=== PATIENT | female | born 1995 | race Two or more races ===

== ENCOUNTER 2024-07-01 03:59 | Inpatient (IN) | payer MEDICAID, SELFPAY ==
[2024-07-01] VITALS (124 sets, daily range): BP systolic 103–168; BP diastolic 58–128; PULSE 91–137; RESP 16; TEMP 36.8–37; O2SAT 86–100; BMI 31.6
[2024-07-01 06:19] LABS: Basophils % (Auto) 1 % (0-2.5); Eosinophils % (Auto) 1 % (0-10); Hematocrit 32.7 % (36.0-46.0); Hemoglobin 10.7 g/dL (12.0-16.0); Immature Granulocytes % (Auto) 6 % (0-0); Immature Granulocytes Auto 0.33 Thou/mm3 (0.00-0.00); Lymphocytes # (Auto) 1.2 Thou/mm3 (1.0-4.8); Lymphocytes % (Auto) 20 % (10-50); Mean Corpuscular HGB Conc 32.7 g/dl (31.0-37.0); Mean Corpuscular Hemoglobin 27.8 pg (25.0-35.0); Mean Corpuscular Volume 85 fL (80-100); Monocytes # (Auto) 0.5 Thou/mm3 (0.0-0.8); Monocytes % (Auto) 9 % (0-12); Neutrophils # (Auto) 3.7 Thou/mm3 (1.8-7.7); Neutrophils % (Auto) 64 % (37-80); Nucleated Red Blood Cell % 0 /100 WBC (0); Platelet Count 203 Thou/mm3 (140-440); RDW Standard Deviation 43.3 fL (36.4-46.3); Red Blood Count 3.85 Miln/mm3 (4.00-5.20); White Blood Count 5.8 Thou/mm3 (3.6-11.0)
[2024-07-01 06:27] LABS: Syphilis Nonreactive (Nonreactive)
[2024-07-01] MEDS: RINGERS LACTATED 1000 ML 1,000 ML 125 ML IV ×2 (08:18→10:39)
[2024-07-01] MEDS: ACETAMINOPHEN 500 MG TABLET 1000 MG PO (08:33)
[2024-07-01 08:55] LABS: COVID-19 Antigen (In-House) Negative (Negative)
[2024-07-01] MEDS: MISOPROSTOL 50 mCg TABLET PO (09:04)
[2024-07-01 09:06] LABS: Influenza A Ag Positive; Influenza B Ag Negative
[2024-07-01] MEDS: OSELTAMIVIR 75 MG CAPSULE PO (10:00)
--- NOTE | 2024-07-01 10:40 | PD.LDHP ---
Documentation for date of: 07/01/24 OB Labor/Induct. HPI History of Present Illness Chief complaint: scheduled IOL : 2 Para: 1 Term pregnancies: 1 pregnancies: 0 Living children: 1 History of Abortions: Spontaneous and Elective: 0 History of Vaginal deliveries: 1 History of sections: No History of : No Date of last menstrual period: 09/20/23 ROSITA: 06/26/24 Gestational Age (weeks): 40 Gestational Age (days): 5 Gestational age based on last menstrual period: 40 Indication for induction: post dates History of present illness: Patient presents for scheduled IOL. She does not have regular/painful ctx, no LOF, no vaginal bleeding. Feels normal movement. She does feel myalgias and like she is coming down with the flu. No fever. + chills. A bit of a cough. Comments: History of with PPH and blood transfusion 09/16/2022. Had IOL for IUGR at 38 weeks. History of Present Dating criteria: LMP confirmed by 1st trimester US Adequate Care: Yes Ultrasounds: normal 1st trimester US and normal mid trimester US Obstetrical complications: none Medical complications: none Labs Labs: Negative: Hepatitis B, HIV, Chlamydia, Gonorrhea and Group Beta Strep Review of Systems Review of Systems Narrative Review of Systems: Review of Systems Systems Reviewed: All systems reviewed, normal except as documented Constitutional Constitutional: POSITIVE body ache(s), POSITIVE chills, Denies fever(s) and Denies headache(s) ENT Ears, Nose, Mouth, and Throat: Denies headache(s) and Denies vertigo Cardiovascular Cardiovascular: Denies chest pain, Denies palpitations, Denies dyspnea and Denies syncope Respiratory Respiratory: POSITIVE cough, Denies dyspnea Gastrointestinal Gastrointestinal: Denies nausea and Denies vomiting Neurologic Neurologic: Denies convulsions, Denies headache(s), Denies other visual disturbances, Denies syncope and Denies vertigo Past Medical History Family History OTHER FAMILY HX: mother has diabetes Surgical History SURGICAL: Negative Section OTHER SURGICAL HX: No surgeries, but 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 Past Medical History Comments PMH COMMENT: Starting BMI 26 Meds Home Medications and Allergies Home Medications ?Medication ?Instructions ?Recorded ?Confirmed ?Type vitamins-iron fumarate 65 tab 09/06/22 History mg iron-folic acid 1 mg tablet Allergies Allergy/AdvReac Type Severity Reaction Status Date / Time No Known Allergies Allergy Verified 07/01/24 04:37 OB Exam Physical Exam Vital signs: Temp Pulse BP Pulse Ox 98.4 F 123 H 108/68 98 07/01/24 09:55 07/01/24 07:01 07/01/24 07:01 07/01/24 10:39 Narrative: General: well developed, well nourished, no acute distress, conversant Cardiac: normal heart rate Lungs: breathing without distress Abdomen: soft, gravid, non-tender, no rebound or guarding. EFW by Emanuel's: [id number] Extremities: no pain with palpation of calves Detailed Labor and Delivery Exam Dilation (cm): 4 Effacement (%): 50 Cervix position: mid station: -2 Consistency: medium Presentation: Vertex Membranes: intact monitor accelerations: 15x15 monitor decelerations: None predatory animal exterminator variability: Moderate (11-25) Contraction frequency (min): irregular OB Results Labs 07/01/24 04:45 Labs: Short CBC 07/01/24 Range/Units 04:45 WBC 5.8 (3.6-11.0) Thou/mm3 Hgb 10.7 L (12.0-16.0) g/dL Hct 32.7 L (36.0-46.0) % Plt Count 203 (140-440) Thou/mm3 OB Assessment & Plan Assessment and Plan (1) Post-dates : Status: Acute Assessment and plan: Tyrone is a 29yo with SIUP at 40w5d presenting for scheduled IOL for post-dates. SCE: /-2. Positive influenza A, negative for Covid. Vitals wnl, benign exam. Reassuring assessment overall. care: Good care with [facility] PMhx/PNC significant for: History of PPH with blood transfusion after 1st delivery in 2022 Starting BMI 26 with initial HgbA1c 5.1 and normal 2hr glucose test Plan: -Admit to L&D -Establish IV, routine labs -CEFM -Initiate tamiflu 75mg PO BID x 5 days. Masking enforced in room. -Regular diet [id number], then clear liquid diet in labor -Front Desk Officer/consent re: iol and -GBS status: negative -Will initiate IOL with: cytotec 50mcg PO Q4hr -Anticipate -Safe to proceed Anne Agarwal MD (2) History of hemorrhage: Status: Acute (3) Influenza A: Status: Acute (1) Post-dates Qualifiers: Post-term type: 40-42 weeks gestation Qualified Code(s): O48.0 - Post-term
[2024-07-01] MEDS: fentaNYL CIT INJ 50 mCg/ML AMP 2ML 100 MCG IV (12:59)
[2024-07-01] MEDS: OXYTOCIN in NS 20 units 20 UNIT/1,000 ML BAG 125 UNIT IV (14:17)
[2024-07-01] MEDS: METHYLERGONOVINE INJ 0.2 MG/ML VIAL IM (14:18)
[2024-07-01] MEDS: LIDOCAINE HCL 1% 20 ML VIAL INFL (14:21)
[2024-07-01] MEDS: IBUPROFEN TAB 400 MG TABLET 800 MG PO (15:04)
--- NOTE | 2024-07-01 15:35 | PD.LDDELS ---
Data ([facility]) Data Hx Section: No : 2 Para: 1 Term: 1 : 0 Livin : 0 Delivery Data ([facility]) Labor Data ROM Date: 07/01/24 ROM Time: 13:00 Rupture Type: SROM Amniotic Fluid: Clear Delivery Data Labor Onset Stage 1 Date: 07/01/24 Labor Onset Stage 1 Time: 09:04 Labor Onset Stage 2 Date: 07/01/24 Labor Onset Stage 2 Time: 14:00 Delivery Date: 07/01/24 Delivery Time: 14:06 Placenta Delivery Date: 07/01/24 Placenta Delivery Time: 14:13 Delivered by: Anne Aagrwal Delivery nurse: Elizabeth Lucas Other staff at delivery: Nurse Other staff at delivery: Martha Dorantes Delivery Method Delivery: Vaginal Delivery Type: Spontaneous Anesthesia Type Primary Anesthesia: None Placenta Placenta Delivery: Spontaneous Perineal repair Sutures used for repair: 3.0 Vicryl EBL Estimated blood loss (ml): 300 Additional Procedures Tyrone is a 29yo [id number] s/p uncomplicated at 40w5d after undergoing IOL for post-dates, delivering at 1406 on 07/01/2024. On presentation, SCE was 4/70/-2. She progressed with a single dose of cytotec to C/C/0 at which point she began pushing. She was not able to receive an epidural in time. With good maternal pushing efforts, 's head delivered OA and restituted CAROLEE. Left anterior shoulder delivered easily followed by posterior shoulder and corpus. Infant had spontaneous cry and was vigorous. Apgars 9/9. Infant placed on maternal abdomen where nose/mouth were suctioned and dried/stimulated. After approximately 1 minute, cord was clamped x2 and cut by patient's sister Cord blood collected for typing. With fundal massage and cord traction, placenta delivered spontaneously and intact with 3 vessel centrally inserted cord. Bimanual massage performed and IV pitocin given per protocol with fundus then firm at u-2cm and hemostasis noted. Inspection of perineum and vagina revealed a 2nd degree perineal laceration which was repaired with 3-0 vicryl in routine fashion after anesthetizing with 1% lidocaine. Total reapproximation and hemostasis achieved. Small trickle of blood, so sweep just within cervix/BANDAR performed which retrieved a small amount of clot. 0.2mg IM methergine given with observed hemostasis after. All counts correct x2. Mom and infant were doing well when I left the room. Anne Agarwal MD Complications Complications: none [place] Data ([facility]) Data Infant Gender: Male Weight Grams: 4005 1 Minute Total: 9 5 Minute Total: 9
[2024-07-01] MEDS: BENZO/LANO/ALOE (Dermoplast) 60 GM CAN 1 SPRAY TOP (16:42)
[2024-07-01] MEDS: ACETAMINOPHEN 325 MG TABLET 650 MG PO (19:14)
[2024-07-01] MEDS: DOCUSATE SOD 100 MG CAPSULE PO (21:07)
[2024-07-01 21:38] LABS: Basophils % (Auto) 0 % (0-2.5); Eosinophils % (Auto) 0 % (0-10); Hematocrit 29.2 % (36.0-46.0); Hemoglobin 9.4 g/dL (12.0-16.0); Immature Granulocytes % (Auto) 4 % (0-0); Immature Granulocytes Auto 0.22 Thou/mm3 (0.00-0.00); Lymphocytes # (Auto) 0.9 Thou/mm3 (1.0-4.8); Lymphocytes % (Auto) 17 % (10-50); Mean Corpuscular HGB Conc 32.2 g/dl (31.0-37.0); Mean Corpuscular Hemoglobin 28.1 pg (25.0-35.0); Mean Corpuscular Volume 87 fL (80-100); Monocytes # (Auto) 0.4 Thou/mm3 (0.0-0.8); Monocytes % (Auto) 8 % (0-12); Neutrophils # (Auto) 3.9 Thou/mm3 (1.8-7.7); Neutrophils % (Auto) 71 % (37-80); Nucleated Red Blood Cell % 0 /100 WBC (0); Platelet Count 197 Thou/mm3 (140-440); RDW Standard Deviation 45.1 fL (36.4-46.3); Red Blood Count 3.34 Miln/mm3 (4.00-5.20); White Blood Count 5.5 Thou/mm3 (3.6-11.0)
[2024-07-02 03:15] VITALS: BP 107/72; PULSE 102; RESP 16; TEMP 37.5; O2SAT 97
[2024-07-02] MEDS: ACETAMINOPHEN 325 MG TABLET 650 MG PO (03:32)
[2024-07-02] MEDS: guaiFENesin/P-EPHED TABLET 1 TAB PO (03:57)
[2024-07-02] MEDS: IBUPROFEN TAB 400 MG TABLET 800 MG PO (06:20)
[2024-07-02 08:17] VITALS: BP 106/71; PULSE 78; RESP 18; TEMP 36.9; O2SAT 98
[2024-07-02] MEDS: DOCUSATE SOD 100 MG CAPSULE PO (09:27)
[2024-07-02 11:55] VITALS: BP 106/73; PULSE 73; RESP 17; TEMP 36.2; O2SAT 99
--- NOTE | 2024-07-02 12:00 | PD.LDDS ---
DS: Providers Provider Date of admission: 07/01/24 03:59 Primary care physician: Physician No Primary/Family Admitting Provider: Telma Curtis MD Attending Provider on Admission: Telma Curtis MD Consults: 07/01/24 14:41 Referral Routine Comment: Attending Provider on DC: Anne Agarwal MD Discharging Provider: Anne Agarwal MD DS: Diagnosis Discharge Diagnosis (1) Influenza A: Status: Acute (2) Post-dates : Status: Acute (3) History of hemorrhage: Status: Acute Problem List Completed Was Problem List Reviewed/Reconciled?: Yes Summary/Hosp Course Brief History: Patient is a 29yo [id number] s/p uncomplicated at 40+wk after induction of labor for post-dates, delivering at 1406 on 07/01/24. She was diagnosed with influenza A on admission and tamiflu was started. She has had an uncomplicated course, meeting all milestones and feels ready for discharge home. She is ambulating without lightheadedness, tolerating regular diet no n/v, spontaneously voiding without issue. She has no chest pain or shortness of breath. No fevers or chills. Minimal, appropriate discomfort. Vitals normal, benign exam. Hemodymanically stable with no evidence of infection. PP Hgb 9.4. Status at Discharge Functional status at discharge: independent ambulation Overall status at discharge: patient is back to baseline Time Spent with Patient Time attestation: Total time spent providing and/or coordinating discharge services: Exam Vital Signs Temp Pulse Resp BP Pulse Ox O2 Del Method 98.4 F 78 18 106/71 98 Room Air 07/02/24 08:17 07/02/24 08:17 07/02/24 08:17 07/02/24 08:17 07/02/24 08:17 07/02/24 08:17 Narrative Exam General: well developed, well nourished, no acute distress, conversant Cardiac: normal heart rate Lungs: breathing without distress Abdomen: soft, post-gravid, non-tender, no rebound or guarding, fundus firm at u-3cm Extremities: no pain with palpation of calves Discharge Plan Plan Patient Disposition: HOME (Self Care) Patient condition on transfer: Stable Prescriptions/Referrals Prescriptions/Med Rec: New ibuprofen 800 mg tablet 800 mg PO Q8H PRN (Reason: See Comments) 10 Days Qty: 30 0RF oseltamivir 75 mg Capsule 75 mg PO BID 4 Days Qty: 8 0RF docusate sodium 100 mg Capsule 100 mg PO BID 10 Days Qty: 30 0RF ferrous sulfate 325 mg (65 mg iron) tablet 325 mg PO QDAY Qty: 30 0RF Continued acetaminophen 500 mg tablet 500 mg PO Q6H PRN (Reason: fever or pain) Qty: 30 0RF vit-iron fum-folic ac 65 mg iron- 1 mg Tablet Discontinued ibuprofen 800 mg tablet 800 mg PO Q8H PRN (Reason: pain) Qty: 30 0RF Referrals: No Primary/Family,Physician [Primary Care Provider] - Patient/Caregiver Discharge Instructions Discharge Activity: activity as tolerated Other Discharge Activity Instructions:: Vaginal rest, no bathing (shower ok), and no heavy lifting more than 10 pounds for 6 weeks Other Discharge Diet Instructions: Regular Education Materials: After a Vaginal , The Flu (Influenza) Print Language: Czech Activity Restrictions/Additional Instructions: Follow up in 4 to 6 weeks with OBGYN or CNM in clinic, call for appointment Stand Alone Forms: Brenda Award Info., Patient Portal Info Letter Discharge Order Discharge Orders: Discharge (Routine); Ordered 07/02/24 Ordered By: Anne Agarwal Planned Discharge Date 07/02/24 (2) Post-dates Qualifiers: Post-term type: 40-42 weeks gestation Qualified Code(s): O48.0 - Post-term
== END 2024-07-02 17:50 | disposition home or self-care (01) | DRG 560 ==
LOC: S4SX 15:57 → S4NX 17:38
PROVIDERS: Obstetrics & Gynecology; Admitting Provider Obstetrics & Gynecology; Visit Provider Obstetrics & Gynecology
DX: O48.0 Post-term pregnancy (principal); Z37.0 Single live birth; Z3A.40 40 weeks gestation of pregnancy; O99.52 Diseases of the respiratory system complicating childbirth; J10.1 Influenza due to other identified influenza virus with other respiratory manifestations; O70.1 Second degree perineal laceration during delivery
CPT/HCPCS: 36415; 59409; 85025; 86780; 86850; 86900; 86901; 87502; 87811; J2210; J2590; J3010; J3490; J7120; A9270

== ENCOUNTER 2025-04-25 08:59 | Outpatient (AMB) | payer MEDICAID, SELFPAY ==
[2025-04-25 09:12] VITALS: BP 114/69; PULSE 96; RESP 18; TEMP 36.8; O2SAT 98
--- NOTE | 2025-04-25 09:12 | OBCLNT_ITS ---
Vital Signs 04/25/25 09:12 Weight 82.157 kg Weight Measurement Method Standing Scale BP 114/69 Blood Pressure Source Automatic Cuff Blood Pressure Location Left Upper Arm Position Sitting Respiration 18 Pulse 96 Pulse Source Monitor Temp 98.2 F Temp Source Oral Pulse Oximetry (%) 98 Oxygen Delivery Method Room Air Allergies/Home Meds Allergies & Medications Allergies No Known Allergies Allergy (Verified 04/25/25 09:13) Medication Reconciliation vitamins-iron fumarate 65 mg iron-folic acid 1 mg tablet tab 09/06/22 [History Confirmed 04/25/25] acetaminophen 500 mg tablet 500 mg PO Q6H PRN fever or pain #30 tabs 09/17/22 [Rx Confirmed 04/25/25] ferrous sulfate 325 mg (65 mg iron) tablet 325 mg PO QDAY #30 tabs 07/02/24 [Rx Confirmed 04/25/25] azithromycin 250 mg tablet (Zithromax Z-Pedrito) See Rx Instructions PO .COMPLEX #6 tabs 04/25/25 [Rx] Intake Visit Data Collection New Patient or Established: Established Patient (seen at [facility] within 3 years) Reason for Visit:: ob transfer Seen by Clinical Staff ONLY (RN/MA): No Financial Developer Required: No Do You Feel Safe at Home: Yes Authorities Contacted: N/A PCP or OBGYN visit in last 3 months: Yes Date of Last PCP or OBGYN visit: 07/02/24 Hx Now: Yes Are you currently on any form of Control: No Last menstrual period: 08/21/24 Pain Present Currently: No Pain Scale Used: Nugent-Turner/Numerical Pain scale:: 0 Smoking Status Smoking Status: Never smoker Immunizations Flu Vaccine in the Last 12 Months: No Flu Vaccine Exclusion Criteria: No Exclusion Criteria Questionnaires Covid-19 Vaccine Questionnaire Has patient been vacinated for Covid-19 Have you been vacinated for Covid-19: No PHQ-9 PHQ-2 Over the last 2 weeks, how often have you been bothered by any of the following problems? 1. Little interest or pleasure in doing things: not at all 2. Feeling down, depressed, or hopeless: not at all Total score: 0 PHQ-9 3. Trouble falling or staying asleep, or sleeping too much: Not at all 4. Feeling tired or having little energy: Not at all 5. Poor appetite or overeating: Not at all 6. Feeling bad about yourself - or that you are a failure or have let yourself or your family down: Not at all 7. Trouble concentrating on things, such as reading the newspaper or watching television: Not at all 8. Moving or speaking so slowly that other people could have noticed? - Or the opposite - being so fidgety or restless that you have been moving around a lot more than usual: not at all 9. Thoughts that you would be better off or of hurting yourself in some way: Not at all Total score: 0 If you checked off any problems, how difficult have these problems made it for you to do your work, take care of things at home, or get along with other people?: not difficult at all Source: Developed by Drs. Michele Cannon, Christi Montes, Geovany Johnson and colleagues, with an educational derek from [employer]. Depression screen completed yes Social History Living Situation History Marital Status: Lives With: Family Housing: Apartment Tobacco History Smoking Status: Never smoker Second Hand Smoke Exposure: No Alcohol History Alcohol Intake: Never Domestic Abuse History Do You Feel Safe at Home: Yes History of Present Illness HPI Narrative 30-year-old 3 para 2 transfer from [facility] at 34 weeks. With records. Patient's last menstrual period was September 02, 2024. EDC June 08, 2020. Patient had her first ultrasound December 30 at 17 weeks 6 days and this confirm dates. Denies social habits. Denies surgery. Denies chronic illness. Patient is A+, antibody screen negative, RPR nonreactive, rubella immune, hepatitis B negative, hep C negative, HIV negative, GC and Chlamydia were negative. Her 1 hour was negative. Her NIPT and carrier screens negative. Her A1c was 4.8. And hemoglobin 11.1 and crit 34.3. She also had in January a 23-week ultrasound that also confirmed dates. Reports movement. 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, bleeding, contractions HOCKEY INSTRUCTOR: Past Medical History Past Medical History: No Hx Neurological Disorders, No Hx Cardiac Disorders, No Hx Blood Disorders, No Hx Gastrointestinal Disorders, No Hx Renal Disease, No Hx Diabetes Mellitus Type 1 and No Hx Diabetes Mellitus Type 2 OB Initial Visit OB Flowsheet OB Flowsheet Initial Weight: Not Recorded Date -?-?-?-?-?-?-?-?-?-?-?-?- EGA Weight BP Alb Glu CTX Pres Fundal ht FHR Mov Dilation Station Effacement Hx Notes Visit Note 04/25/25 -?-?-?-?-?-?-?-?-?-?-?-?- 34w 3d 82.157 kg 114/69 absent cephalic 34 145 active 30-year-old 3 para 2 for OBI. Patient is a transfer care from [facility] with records. She complains of URI symptoms. Denies temperature. She has a stuffy nose and sore throat. She did a home test for COVID and it was negative. Reports good movement. Denies contractions, leaking, bleeding Discussed danger signs symptoms and ER precautions. Patient will follow-up to [facility] in a week if she does not improve. I ordered a Z- Pedrito. Increase fluids. Comfort measures and nkbq-ibq-gsvavkm meds for cough and cold. Discussed labor precautions. Kick count twice a day. We reviewed records. Return in a week OB check Discussed danger signs sympt oms and ER precautions. Patient will follow-up to [facility] in a week if she does not improve. I ordered a Z-Pedrito. Increase fluids. Comfort measures and ottb-cbc-lqqryss meds for cough and cold. Discussed labor precautions. Kick count twice a day. We reviewed records. Return in a week OB check. Z pack Menstrual History Menstrual reliability: definite Flow: normal Menstrual regularity: regular Monthly: Yes On control pills at conception: No OB History : 3 Para: 2 Hx # Pregnancies: 0 Hx Total # of Abortions (Spontaneous & Elective): 0 # of Living Children: 2 Delivery History 1st : Child's name: NA date: 09/06/22 sex: female Delivery type: vaginal 2nd : Child's name: NA date: 07/01/24 sex: male Delivery type: vaginal History of depression before or after : No Infection History & Risk Evaluation History of STDs: none HIV risk evaluation: low risk Hepatitis B risk evaluation: low risk Patient or partner has history of Genital Herpes: No Varicella/chicken pox status: immunized Genetic Screening & History Genetic Screening/Teratology Counseling - Includes patient, baby's father, or anyone in either family with: 1. Patient's age 35 years or older as of estimated date of delivery: No 2. Thalassemia (Thai, Kiswahili, Mediterranean, or Background); MCV less than 80: No 3. Neural Tube Defect (Meningomyelocele, Spina Bifida, or Anencephaly): No 4. Congenital Heart Defect: No 5. Down Syndrome: No 6. Ra-Sachs (Ashkenazi Sikhism, Cajun, Cameroonian French): No 7. Gerardo Disease (Ashkenazi Sikhism): No 8. Familial Dysautonomia (Ashkenazi Sikhism): No 9. Sickle Cell Disease or Trait (): No 10. Hemophilia or other blood disorders: No 11. Muscular Dystrophy: No 12. Cystic Fibrosis: No 13. Malou's Chorea: No 14. Mental Retardation/Autism: No 15. Other inherited genetic or chromosomal disorder: No 16. Maternal Metabolic Disorder (EG,TYPE 1 Diabetes, PKU): No 17. Patient or baby's father had a child with defects not listed above: No 18. Recurrent loss or a stillbirth: No 19. Medications (including supplements, vitamins, herbs or otc drugs)/ill icit/recreational drugs/alcohol since last menstrual period: No 20. Any other: No Infection History 1. Live with someone with TB or exposed to TB: No 2. Rash or viral illness since last menstrual period: No 3. Hepatitis B,C: No Other (see comments) Source: [employer] Review of Systems Review of Systems Systems Reviewed: All systems reviewed, normal except as documented Exam General Limitations: no limitations General Appearance: alert, in no apparent distress, comfortable, cooperative, healthy appearing, well developed and well groomed Head Head exam: atraumatic, normocephalic and normal inspection ENT ENT exam: Present normal exam, normal oropharynx and mucous membranes moist Chest Chest inspection: Present normal inspection and symmetric chest wall rise Resp Respiratory exam: Present normal lung sounds bilaterally Abdominal Abdominal exam: Present soft and normal bowel sounds Psych Psychiatric exam: Present normal affect and normal mood Office Procedures OBC Clinic LOC & Office Proc's Nursing/Assessment Patient Status: Established Patient OB Clinic Nursing Assessment: BP Monitoring, Medication Reconciliation and Vital Signs OB Clinic Coordination of Care: Consent,records obtained, informed consent, Education Simp Pt/Fam, Lab and Imaging orders, Results/Orders obtained and Staff clarify orders Established Patient Charge Established Patient Point Assignment: 85 Established Patient Point Charge: EP Level 3 (80-115) Assessment & Plan Diagnosis / Problem List (1) Encounter for supervision of high risk in third trimester, antepartum: Status: Acute Plan Discussed comfort measures for cough and cold. Discussed danger signs symptoms. Discussed ER precautions. Increase fluids. Copo-ado-slrvpjd meds for cough and cold. I gave patient a Z-Pedrito with instructions. She will follow-up in a week if she still feeling bad at [facility]. Kick count twice a day. And return in 2 weeks OB check Additional Plan Follow Up: 2 Weeks (obc)
== END 2025-04-25 09:39 | disposition home or self-care (01) ==
LOC: HODSOBC 08:59
PROVIDERS: Supervising Provider Advanced Practice Midwife; Visit Provider Advanced Practice Midwife
DX: O09.893 Supervision of other high risk pregnancies, third trimester (principal); O99.513 Diseases of the respiratory system complicating pregnancy, third trimester; J00 Acute nasopharyngitis [common cold]; Z3A.34 34 weeks gestation of pregnancy
CPT/HCPCS: 99213; G0463

== ENCOUNTER 2025-05-11 10:23 | Outpatient (AMB) | payer MEDICAID, SELFPAY ==
[2025-05-11 10:40] VITALS: BP 115/75; PULSE 87; RESP 16; TEMP 36.2; O2SAT 98; BMI 31.6
--- NOTE | 2025-05-11 10:40 | OBCLNT_ITS ---
Vital Signs 05/11/25 10:40 Height 1.63 m Height Method Stated Weight 83.574 kg Weight Measurement Method Standing Scale BMI 31.6 BP 115/75 Blood Pressure Source Automatic Cuff Blood Pressure Location Left Upper Arm Position Sitting Respiration 16 Pulse 87 Pulse Source Monitor Temp 97.2 F Temp Source Oral Pulse Oximetry (%) 98 Oxygen Delivery Method Room Air Allergies/Home Meds Allergies & Medications Allergies No Known Allergies Allergy (Verified 05/11/25 10:41) Medication Reconciliation vitamins-iron fumarate 65 mg iron-folic acid 1 mg tablet tab 09/06/22 [History Confirmed 05/11/25] ferrous sulfate 325 mg (65 mg iron) tablet 325 mg PO QDAY #30 tabs 07/02/24 [Rx Confirmed 05/11/25] ferrous sulfate 325 mg (65 mg iron) tablet 325 mg PO BID #60 tabs 05/11/25 [Rx] vitamin-ferrous fumarate 28 mg iron-folic acid 800 mcg tablet ( Vitamins with Minerals) 1 tab PO QDAY #60 tabs 05/11/25 [Rx] Immunizations Immunizations Flu Vaccine in the Last 12 Months: Yes Flu Vaccine Exclusion Criteria: Already Received Care OB Visit Log OB Flowsheet Initial Weight: Not Recorded Date -?-?-?-?-?-?--?-?-?-?-?-?- EGA Weight BP Alb Glu CTX Pres Fundal ht FHR Mov Dilation Station Effacement Hx Notes Visit Note 04/25/25 -?-?-?-?-?-?-?-?-?-?-?-?- 34w 3d 82.157 kg 114/69 absent cephalic 34 145 active 30-year-old 3 para 2 for OBI. Patient is a transfer care from [facility] with records. She complains of URI symptoms. Denies temperature. She has a stuffy nose and sore throat. She did a home test for COVID and it was negative. Reports good movement. Denies contractions, leaking, bleeding Discussed danger signs symptoms and ER precautions. Patient will follow-up to [facility] in a week if she does not improve. I ordered a Z- Pedrito. Increase fluids. Comfort measures and bplz-yce-epcgest meds for cough and cold. Discussed labor precautions. Kick count twice a day. We reviewed records. Return in a week OB check Discussed danger signs sympt oms and ER precautions. Patient will follow-up to [facility] in a week if she does not improve. I ordered a Z-Pedrito. Increase fluids. Comfort measures and iqbf-mvq-wtnoggj meds for cough and cold. Discussed labor precautions. Kick count twice a day. We reviewed records. Return in a week OB check. Z pack 05/11/25 -?-?-?-?-?-?-?-?-?-?-?-?- 36w 5d 83.574 kg 115/75 absent cephalic 35 135 active Reports good movement. Denies any signs of labor. Reports no existence of contractions, leaking, bleeding GBS today. Re fill prenatals and iron. Discussed labor precautions and kick count return in 2 weeks OB check ROSITA Calculator Estimated Delivery Date Method Current WG Current Estimate 06/03/25 LMP (Certain) 36w 5d Other Estimates 06/03/25 Ultrasound #1 36w 5d 06/08/25 Ultrasound #2 36w 0d 06/03/25 Manual 36w 5d final rosita: ,03/31 EFW: 34% Notes Visit Date: 04/25/25 Last Updated by: Liana Ervin, RGACY 30 yo . EDC: 06/08/25. . LMP: 09/01/24, A+,abs-, rpr;;nr, rub imm, hbsag-, hiv-,HC-, GC/CT-, 1 hr gtt: wnl, HCT: 34, A1.c: 4.9, NIPT:neg Office Procedures OBC Clinic LOC & Office Proc's Nursing/Assessment Patient Status: Established Patient OB Clinic Nursing Assessment: Medication Reconciliation, Update PMH in EMR and Vital Signs OB Clinic Coordination of Care: Complex Care and Chronic Disease 1-5, Consent,records obtained, informed consent, Education Simp Pt/Fam, 1 Ins Authorization, Lab and Imaging orders, Results/Orders obtained and Staff clarify orders Special Needs: Heart tones Miscellaneous Interventions: Culture Specimen Collection Established Patient Charge Established Patient Point Assignment: 165 Established Patient Point Charge: EP Level 5 (160-above) Assessment & Plan Diagnosis / Problem List (1) Encounter for supervision of high risk in third trimester, antepartum: Status: Acute Plan Reviewed labs. Will review ultrasound. Discussed labor precautions. Kick count twice a day. GBS today. Return iron and vitamins. Return 2 weeks OB check Additional Plan Follow Up: 2 Weeks (obc)
== END 2025-05-11 10:50 | disposition home or self-care (01) ==
PROVIDERS: Supervising Provider Advanced Practice Midwife; Visit Provider Advanced Practice Midwife
DX: O09.93 Supervision of high risk pregnancy, unspecified, third trimester (principal); Z3A.36 36 weeks gestation of pregnancy; Z36.85 Encounter for antenatal screening for Streptococcus B
CPT/HCPCS: 99215; G0463

== ENCOUNTER 2025-05-19 10:41 | Outpatient (AMB) | payer MEDICAID, SELFPAY ==
[2025-05-19 10:53] VITALS: BP 115/72; PULSE 94; RESP 18; TEMP 36.2; O2SAT 98; BMI 31.2
--- NOTE | 2025-05-19 10:53 | AMB.OBPNC ---
Vital Signs 05/19/25 10:53 Height 1.63 m Height Method Stated Weight 83.064 kg Weight Measurement Method Standing Scale BMI 31.2 BP 115/72 Blood Pressure Source Automatic Cuff Blood Pressure Location Left Upper Arm Position Sitting Respiration 18 Pulse 94 Pulse Source Monitor Temp 97.2 F Temp Source Oral Pulse Oximetry (%) 98 Oxygen Delivery Method Room Air Allergies/Home Meds Allergies & Medications Allergies No Known Allergies Allergy (Verified 05/19/25 10:54) Medication Reconciliation vitamins-iron fumarate 65 mg iron-folic acid 1 mg tablet tab 09/06/22 [History Confirmed 05/19/25] ferrous sulfate 325 mg (65 mg iron) tablet 325 mg PO QDAY #30 tabs 07/02/24 [Rx Confirmed 05/19/25] ferrous sulfate 325 mg (65 mg iron) tablet 325 mg PO BID #60 tabs 05/11/25 [Rx Confirmed 05/19/25] vitamin-ferrous fumarate 28 mg iron-folic acid 800 mcg tablet ( Vitamins with Minerals) 1 tab PO QDAY #60 tabs 05/11/25 [Rx Confirmed 05/19/25] Immunizations Immunizations Flu Vaccine in the Last 12 Months: Yes Flu Vaccine Exclusion Criteria: Already Received Care OB Visit Log OB Flowsheet Initial Weight: Not Recorded Date <del>?</del> EGA Weight BP Alb Glu CTX Pres Fundal ht FHR Mov Dilation Station Effacement Hx Notes Visit Note 04/25/25 <del>?</del> 34w 3d 82.157 kg 114/69 absent cephalic 34 145 active 30-year-old 3 para 2 for OBI. Patient is a transfer care from [facility] with records. She complains of URI symptoms. Denies temperature. She has a stuffy nose and sore throat. She did a home test for COVID and it was negative. Reports good movement. Denies contractions, leaking, bleeding Discussed danger signs symptoms and ER precautions. Patient will follow-up to [facility] in a week if she does not improve. I ordered a Z-Pedrito. Increase fluids. Comfort measures and lgbl-udt-wyijskl meds for cough and cold. Discussed labor precautions. Kick count twice a day. We reviewed records. Return in a week OB check Discussed danger signs symptoms and ER precautions. Patient will follow-up to [facility] in a week if she does not improve. I ordered a Z-Pedrito. Increase fluids. Comfort measures and eyog-gxj-sylxlbi meds for cough and cold. Discussed labor precautions. Kick count twice a day. We reviewed records. Return in a week OB check. Z pack 05/11/25 <del>?</del> 36w 5d 83.574 kg 115/75 absent cephalic 35 135 active Reports good movement. Denies any signs of labor. Reports no existence of contractions, leaking, bleeding GBS today. Refill prenatals and iron. Discussed labor precautions and kick count return in 2 weeks OB check 05/19/25 <del>?</del> 37w 6d 83.064 kg 115/72 occasional cephalic 37 145 active Reports good movement. 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 or bleeding. Occasional contraction and pressure Reviewed kick count. Reviewed labor precautions and danger signs symptoms and ER precautions. And return week OB check ROSITA Calculator Estimated Delivery Date Method Current WG Current Estimate 06/03/25 LMP (Certain) 37w 6d Other Estimates 06/03/25 Ultrasound #1 37w 6d 06/08/25 Ultrasound #2 37w 1d 06/03/25 Manual 37w 6d final rosita: 06/03/25,03/31 EFW: 34% Notes Visit Date: 04/25/25 Last Updated by: Liana Ervin CNM 30 yo . EDC: 06/08/25. . LMP: 09/01/24, A+,abs-, rpr;;nr, rub imm, hbsag-, hiv-,HC-, GC/CT-, 1 hr gtt: wnl, HCT: 34, A1.c: 4.9, NIPT:neg Office Procedures OBC Clinic LOC & Office Proc's Nursing/Assessment Patient Status: Established Patient OB Clinic Nursing Assessment: Medication Reconciliation, Update PMH in EMR and Vital Signs OB Clinic Coordination of Care: Complex Care and Chronic Disease 1-5, Consent,records obtained, informed consent, Education Simp Pt/Fam, Lab and Imaging orders, Results/Orders obtained and Staff clarify orders Special Needs: Heart tones Established Patient Charge Established Patient Point Assignment: 135 Established Patient Point Charge: EP Level 4 (120-155) Assessment & Plan Diagnosis / Problem List (1) Encounter for supervision of high risk in third trimester, antepartum: Status: Acute Plan Discussed labor precautions. Kick count twice a day. Discussed ER precautions with parameters and danger signs symptoms and return in a week. Additional Plan Follow Up: 1 Week (obc)
== END 2025-05-19 11:35 | disposition home or self-care (01) ==
LOC: HODSOBC 10:41
PROVIDERS: Supervising Provider Advanced Practice Midwife; Visit Provider Advanced Practice Midwife
DX: O09.893 Supervision of other high risk pregnancies, third trimester (principal); Z3A.37 37 weeks gestation of pregnancy
CPT/HCPCS: 99214; G0463

== ENCOUNTER 2025-05-27 09:57 | Outpatient (AMB) | payer MEDICAID, SELFPAY ==
--- NOTE | 2025-05-27 10:10 | OBCLNT_ITS ---
Vital Signs 05/27/25 10:12 Height 1.63 m Height Method Stated Weight 84.028 kg Weight Measurement Method Standing Scale BMI 31.6 BP 117/75 Blood Pressure Source Automatic Cuff Blood Pressure Location Left Upper Arm Position Sitting Respiration 18 Pulse 96 Pulse Source Monitor Temp 97.2 F Temp Source Oral Pulse Oximetry (%) 97 Oxygen Delivery Method Room Air Allergies/Home Meds Allergies & Medications Allergies No Known Allergies Allergy (Verified 05/27/25 10:13) Medication Reconciliation vitamins-iron fumarate 65 mg iron-folic acid 1 mg tablet tab 09/06/22 [History Confirmed 05/27/25] ferrous sulfate 325 mg (65 mg iron) tablet 325 mg PO QDAY #30 tabs 07/02/24 [Rx Confirmed 05/27/25] ferrous sulfate 325 mg (65 mg iron) tablet 325 mg PO BID #60 tabs 05/11/25 [Rx Confirmed 05/27/25] vitamin-ferrous fumarate 28 mg iron-folic acid 800 mcg tablet ( Vitamins with Minerals) 1 tab PO QDAY #60 tabs 05/11/25 [Rx Confirmed 05/27/25] Immunizations Immunizations Flu Vaccine in the Last 12 Months: No Flu Vaccine Exclusion Criteria: No Exclusion Criteria Care OB Visit Log OB Flowsheet Initial Weight: Not Recorded Date -?-?-?-?-?-?-?-?-?-?-?-?- EGA Weight BP Alb Glu CTX Pres Fundal ht FHR Mov Dilation Station Effacement Hx Notes Visit Note 04/25/25 -?-?-?-?-?-?-?-?-?-?-?-?- 34w 3d 82.157 kg 114/69 absent cephalic 34 145 active 30-year-old 3 para 2 for OBI. Patient is a transfer care from [facility] with records. She complains of URI symptoms. Denies temperature. She has a stuffy nose and sore throat. She did a home test for COVID and it was negative. Reports good movement. Denies contractions, leaking, bleeding Discussed danger signs symptoms and ER precautions. Patient will follow-up to [facility] in a week if she does not improve. I ordered a Z- Pedrito. Increase fluids. Comfort measures and ylyu-wbi-kvnavgm meds for cough and cold. Discussed labor precautions. Kick count twice a day. We reviewed records. Return in a week OB check Discussed danger signs sympt oms and ER precautions. Patient will follow-up to [facility] in a week if she does not improve. I ordered a Z-Pedrito. Increase fluids. Comfort measures and xvyd-mlj-ncqfxsd meds for cough and cold. Discussed labor precautions. Kick count twice a day. We reviewed records. Return in a week OB check. Z pack 05/11/25 -?-?-?-?-?-?-?-?-?-?-?-?- 36w 5d 83.574 kg 115/75 absent cephalic 35 135 active Reports good movement. Denies any signs of labor. Reports no existence of contractions, leaking, bleeding GBS today. Re fill prenatals and iron. Discussed labor precautions and kick count return in 2 weeks OB check 05/19/25 -?-?-?-?-?-?-?-?-?-?-?-?- 37w 6d 83.064 kg 115/72 occasional cephalic 37 145 active Reports good movement. 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 or bleeding. Occasional contraction and pressure Reviewed kick co unt. Reviewed labor precautions and danger signs symptoms and ER precautions. And return week OB check 05/27/25 -?-?-?-?-?-?-?-?-?-?-?-?- 39w 0d 84.028 kg 117/75 occasional cephalic 38 145 active 2.5 -1 70 Occasional contraction. Reports good movement. 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 or bleeding Discussed labor precautions and ER precautions patient. Kick count twice a day. Comfort measures for early labor and return in week OB check ROSITA Calculator Estimated Delivery Date Method Current WG Current Estimate 06/03/25 LMP (Certain) 39w 0d Other Estimates 06/03/25 Ultrasound #1 39w 0d 06/08/25 Ultrasound #2 38w 2d 06/03/25 Manual 39w 0d final rosita: ,03/31 EFW: 34% Notes Visit Date: 05/27/25 Last Updated by: Liana Ervin CNM GBS- Visit Date: 04/25/25 Last Updated by: Liana Ervin CNM 30 yo . EDC: 06/08/25. . LMP: 09/01/24, A+,abs-, rpr;;nr, rub imm, hbsag-, hiv-,HC-, GC/CT-, 1 hr gtt: wnl, HCT: 34, A1.c: 4.9, NIPT:neg Office Procedures OBC Clinic LOC & Office Proc's Nursing/Assessment Patient Status: Established Patient OB Clinic Nursing Assessment: Medication Reconciliation, Update PMH in EMR and Vital Signs OB Clinic Coordination of Care: Complex Care and Chronic Disease 1-5, Consent,records obtained, informed consent, Education Simp Pt/Fam, Lab and Imaging orders, Results/Orders obtained and Staff clarify orders Special Needs: Heart tones Established Patient Charge Established Patient Point Assignment: 135 Established Patient Point Charge: EP Level 4 (120-155) Assessment & Plan Diagnosis / Problem List (1) Encounter for supervision of high risk in third trimester, antepartum: Status: Acute Plan Discussed labor precautions. Kick count twice a day. Reviewed ER precautions with patient and danger signs symptoms return a week OB check Additional Plan Follow Up: 1 Week (obc)
[2025-05-27 10:12] VITALS: BP 117/75; PULSE 96; RESP 18; TEMP 36.2; O2SAT 97; BMI 31.6
== END 2025-05-27 10:47 | disposition home or self-care (01) ==
LOC: HODSOBC 09:57
PROVIDERS: Supervising Provider Advanced Practice Midwife; Visit Provider Advanced Practice Midwife
DX: O09.93 Supervision of high risk pregnancy, unspecified, third trimester (principal); Z3A.39 39 weeks gestation of pregnancy
CPT/HCPCS: 99214; G0463

== ENCOUNTER 2025-06-01 13:00 | Outpatient (AMB) | payer MEDICAID, SELFPAY ==
--- NOTE | 2025-06-01 13:22 | OBCLNT_ITS ---
Vital Signs 06/01/25 13:23 Height 1.63 m Height Method Stated Weight 84.425 kg Weight Measurement Method Standing Scale BMI 31.8 BP 123/77 Blood Pressure Source Automatic Cuff Blood Pressure Location Right Upper Arm Position Sitting Respiration 16 Pulse 91 Pulse Source Monitor Temp 97.7 F Temp Source Temporal Artery Scan Pulse Oximetry (%) 97 Oxygen Delivery Method Room Air Allergies/Home Meds Allergies & Medications Allergies No Known Allergies Allergy (Verified 06/01/25 13:34) Medication Reconciliation vitamins-iron fumarate 65 mg iron-folic acid 1 mg tablet tab 09/06/22 [History Confirmed 06/01/25] ferrous sulfate 325 mg (65 mg iron) tablet 325 mg PO QDAY #30 tabs 07/02/24 [Rx Confirmed 06/01/25] ferrous sulfate 325 mg (65 mg iron) tablet 325 mg PO BID #60 tabs 05/11/25 [Rx Confirmed 06/01/25] vitamin-ferrous fumarate 28 mg iron-folic acid 800 mcg tablet ( Vitamins with Minerals) 1 tab PO QDAY #60 tabs 05/11/25 [Rx Confirmed 06/01/25] Immunizations Immunizations Flu Vaccine in the Last 12 Months: No Flu Vaccine Exclusion Criteria: Refused by Patient Care OB Visit Log OB Flowsheet Initial Weight: Not Recorded Date -?-?-?-?-?-?-?-?-?-?-?-?- EGA Weight BP Alb Glu CTX Pres Fundal ht FHR Mov Dilation Station Effacement Hx Notes Visit Note 04/25/25 -?-?-?-?-?-?-?-?-?-?-?-?- 34w 3d 82.157 kg 114/69 absent cephalic 34 145 active 30-year-old 3 para 2 for OBI. Patient is a transfer care from [facility] with [facility]. She complains of URI symptoms. Denies temperature. She has a stuffy nose and sore throat. She did a home test for COVID and it was negative. Reports good movement. Denies contractions, leaking, bleeding Discussed danger signs symptoms and ER precautions. Patient will follow-up to [facility] in a week if she does not improve. I ordered a Z-Pedrito. Increase fluids. Comfort measures and jlzd-fjt-uheflcl meds for cough and cold. Discussed labor precautions. Kick count twice a day. We reviewed records. Return in a week OB check Discussed danger signs sympt oms and ER precautions. Patient will follow-up to [facility] in a week if she does not improve. I ordered a Z-Pedrito. Increase fluids. Comfort measures and osaq-mee-tgkpjdd meds for cough and cold. Discussed labor precautions. Kick count twice a day. We reviewed records. Return in a week OB check. Z pack 05/11/25 -?-?-?-?-?-?-?-?-?-?-?-?- 36w 5d 83.574 kg 115/75 absent cephalic 35 135 active Reports good movement. Denies any signs of labor. Reports no existence of contractions, leaking, bleeding GBS today. Re fill prenatals and iron. Discussed labor precautions and kick count return in 2 weeks OB check 05/19/25 -?-?-?-?-?-?-?-?-?-?-?-?- 37w 6d 83.064 kg 115/72 occasional cephalic 37 145 active Reports good movement. 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 or bleeding. Occasional contraction and pressure Reviewed kick co unt. Reviewed labor precautions and danger signs symptoms and ER precautions. And return week OB check 05/27/25 -?-?-?-?-?-?-?-?-?-?-?-?- 39w 0d 84.028 kg 117/75 occasional cephalic 38 145 active 2.5 -1 70 Occasional contraction. Reports good movement. 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 or bleeding Discussed labor precautions and ER precautions patient. Kick count twice a day. Comfort measures for early labor and return in week OB check 06/01/25 -?-?-?-?-?-?-?-?-?-?-?-?- 39w 5d 84.425 kg 123/77 occasional cephalic 39 145 active 4 0 70 Increased contractions. 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 or bleeding. Reports good movement. Patient has a cold that she has had for few days denies any fever. Occasional contraction. And pressure. She complains of a headache on the left side. No visual changes no epigastric pain I asked patient to go to the hospital while she was here. Patient declines she is going to go home and take care of her children before she goes. We discussed labor precautions and kick count twice a day and we discussed danger signs and symptoms she will return in a week if undelivered. ROSITA Calculator Estimated Delivery Date Method Current WG Current Estimate 06/03/25 LMP (Certain) 39w 5d Other Estimates 06/03/25 Ultrasound #1 39w 5d 06/08/25 Ultrasound #2 39w 0d 06/03/25 Manual 39w 5d final rosita: ,03/31 EFW: 34% Notes Visit Date: 05/27/25 Last Updated by: Liana Ervin CNM GBS- Visit Date: 04/25/25 Last Updated by: Liana Ervin CNM 30 yo . EDC: 06/08/25. . LMP: 09/01/24, A+,abs-, rpr;;nr, rub imm, hbsag-, hiv-,HC-, GC/CT-, 1 hr gtt: wnl, HCT: 34, A1.c: 4.9, NIPT:neg Office Procedures OBC Clinic LOC & Office Proc's Nursing/Assessment Patient Status: Established Patient OB Clinic Nursing Assessment: Medication Reconciliation, Update PMH in EMR and Vital Signs OB Clinic Coordination of Care: Complex Care and Chronic Disease 1-5, Consent,records obtained, informed consent, Education Simp Pt/Fam, 1 Ins Authorization, Lab and Imaging orders, Results/Orders obtained and Staff clarify orders Special Needs: Heart tones Established Patient Charge Established Patient Point Assignment: 150 Established Patient Point Charge: EP Level 4 (120-155) Assessment & Plan Diagnosis / Problem List (1) Encounter for supervision of high risk in third trimester, antepartum: Status: Acute Plan Discussed labor precautions. Kick count. Disc discussed ER precautions and PIH signs symptoms. Patient advised to labor and delivery for PIH workup. Increase fluids and return on Friday if undelivered Additional Plan Follow Up: 6 Days (obc)
[2025-06-01 13:23] VITALS: BP 123/77; PULSE 91; RESP 16; TEMP 36.5; O2SAT 97; BMI 31.8
== END 2025-06-01 13:50 | disposition home or self-care (01) ==
LOC: HODSOBC 13:00
PROVIDERS: Supervising Provider Advanced Practice Midwife; Visit Provider Advanced Practice Midwife
DX: O09.893 Supervision of other high risk pregnancies, third trimester (principal); O99.513 Diseases of the respiratory system complicating pregnancy, third trimester; J00 Acute nasopharyngitis [common cold]; O99.891 Other specified diseases and conditions complicating pregnancy; R51.9 Headache, unspecified; O47.1 False labor at or after 37 completed weeks of gestation; Z3A.39 39 weeks gestation of pregnancy; Z53.29 Procedure and treatment not carried out because of patient's decision for other reasons; Z28.21 Immunization not carried out because of patient refusal
CPT/HCPCS: 99214; G0463